=== PATIENT | male | born 1990 | race Caucasian/White ===

== ENCOUNTER 2020-11-11 22:23 | Emergency (ER) | payer OTHER ==
[~2020-11-11] VITALS: Ht 182.9 cm; Wt 83.9 kg
[2020-11-11 22:23] VITALS: BP 135/96
--- NOTE | 2020-11-12 00:16 | NUR ---
XRAY AT BEDSIDE
== END 2020-11-12 00:42 | disposition home or self-care (01) ==
LOC: ER 22:27
DX: M25.531 Pain in right wrist (principal); M25.532 Pain in left wrist; W19.XXXA Unspecified fall, initial encounter; Y93.89 Activity, other specified; Y92.89 Other specified places as the place of occurrence of the external cause; Y99.8 Other external cause status
CPT/HCPCS: 73110